=== PATIENT | male | born 1990 | race Two or more races ===

== ENCOUNTER 2017-12-11 09:58 | Emergency (ER) | payer MEDICAID ==
[~2017-12-11] VITALS: Ht 170.2 cm; Wt 72.7 kg
[~2017-12-11 09:58] MED LIST: HYDR-3965 PO; METR500T PO; METR500T4 PO; PANT-47 PO; PRED20TA PO
[2017-12-11 10:34] LABS: BASOPHILS # (AUTO) 0.1 X10'3 (0-0.2); BASOPHILS % (AUTO) 0.9 % (0-1); EOSINOPHILS # (AUTO) 0.3 X10'3 (0-0.9); EOSINOPHILS % (AUTO) 3.3 % (0-6); HEMATOCRIT 38.4 % (42.0-52.0); HEMOGLOBIN 12.3 g/dl (14.0-17.9); LYMPHOCYTES # (AUTO) 1.5 X10'3 (1.1-4.8); LYMPHOCYTES % (AUTO) 15.7 % (21-51); MEAN CORPUSCULAR HEMOGLOBIN 23.6 PG (27.0-31.0); MEAN CORPUSCULAR VOLUME 73.8 FL (78-98); MEAN PLATELET VOLUME 7.2 FL (7.4-10.4); MONOCYTES # (AUTO) 1.2 X10'3 (0-0.9); MONOCYTES % (AUTO) 12.5 % (2-12); NEUTROPHILS # (AUTO) 6.3 X10'3 (1.8-7.7); NEUTROPHILS % (AUTO) 67.6 % (42-75); PLATELET COUNT 793 X10'3 (140-440); RED BLOOD COUNT 5.21 X10'6 (4.70-6.10); RED CELL DISTRIBUTION WIDTH 15.6 % (11.5-14.5); WHITE BLOOD COUNT 9.4 X10'3 (4.5-11.0)
[2017-12-11 10:47] LABS: ALANINE AMINOTRANSFERASE 30 U/L (12-78); ALBUMIN 4.1 G/DL (3.4-5.0); ALKALINE PHOSPHATASE 65 IU/L (46-116); ANION GAP 6 (8-16); ASPARTATE AMINO TRANSFERASE 24 U/L (10-37); BILIRUBIN,TOTAL 0.6 MG/DL (0.1-1.0); BLOOD UREA NITROGEN 9 MG/DL (7-18); BUN/CREATININE RATIO 8.4 (5.4-32.0); CALCIUM 9.2 MG/DL (8.5-10.1); CHLORIDE 99 MMOL/L (99-107); CREATININE 1.07 MG/DL (0.60-1.10); GLUCOSE 106 MG/DL (70-104); POTASSIUM 3.6 MMOL/L (3.5-5.1); SODIUM 135 MMOL/L (135-145); TOTAL CARBON DIOXIDE 29.8 MMOL/L (24-32); TOTAL PROTEIN 8.2 G/DL (6.4-8.2); eGFR 82 ML/MIN
[2017-12-11 10:47] LABS: CLARITY,URINE CLEAR (Clear); COLOR,URINE YELLOW (Yellow); GLUCOSE, URINE NEGATIVE (Neg); KETONES,URINE TRACE mg/dl (Neg); LEUKOCYTE ESTERASE ,URINE NEGATIVE (Neg); NITRITES, URINE NEGATIVE (Neg); OCCULT BLOOD,URINE TRACE-INTACT (Neg); PROTEIN,URINE NEGATIVE (Neg); UROBILINOGEN,URINE 0.2 E.U/dL (0.2-1.0)
[2017-12-11 10:48] LABS: PROTHROMBIN TIME 10.4 SECONDS (9.0-12.0)
[2017-12-11] MEDS ORDERED: ondansetron/PF 4mg/2ml inj IV ONE (10:55)
[2017-12-11] MEDS ORDERED: methylPREDNISolone sod succ 125mg/2ml vial IV ONE (10:55)
[2017-12-11] MEDS ORDERED: normal saline 1000ML IV soln IVB ONE (10:55)
[2017-12-11] MEDS ORDERED: morphine 4 MG/ML inj SYRINge IV PRN (10:55)
[2017-12-11 11:03] LABS: UA COLLECTION TYPE VOIDED
[2017-12-11 11:15] LABS: WBC,URINE NONE SEEN /HPF (0-4)
[2017-12-11 11:16] LABS: BACTERIA,URINE 1+ /HPF (Neg); MUCUS STRANDS NONE SEEN /LPF (Neg); RBC,URINE 0-2 /HPF (0-2); SQUAMOUS EPITHELIAL CELL,UR FEW /LPF (FEW)
[2017-12-11] MEDS ORDERED: CIPR-230 PO (13:00)
[2017-12-11] MEDS ORDERED: METR500T4 PO (13:00)
[2017-12-11] MEDS ORDERED: PRED20TA PO (13:00)
[2017-12-11] MEDS ORDERED: ONDA4TAB6 PO (13:01)
[2017-12-11 13:21] VITALS: BP 119/67
== END 2017-12-11 13:31 | disposition home or self-care (01) ==
LOC: ER 09:58
DX: K51.90 Ulcerative colitis, unspecified, without complications (principal); J45.909 Unspecified asthma, uncomplicated; Z79.2 Long term (current) use of antibiotics; Z79.899 Other long term (current) drug therapy
CPT/HCPCS: 36415; 80053; 81001; 85025; 85610; 96374; 96375; 99284; J2270; J2405; J2930; J7030

== ENCOUNTER 2018-11-28 10:32 | Emergency (ER) | payer MEDICAID ==
[~2018-11-28] VITALS: Ht 170.2 cm; Wt 82.0 kg
[~2018-11-28 10:32] MED LIST changes: +METR-159 PO; -METR500T4 PO; +ONDA4TAB6 PO
[2018-11-28] MEDS ORDERED: BUPIVAcaine/PF 7.5mg/ml (0.75%) 10ml vial IJ ONE (11:15)
[2018-11-28] MEDS ORDERED: AMOX500C2 PO (11:23)
[2018-11-28 11:44] VITALS: BP 126/66
== END 2018-11-28 11:46 | disposition home or self-care (01) ==
LOC: ER 10:33
DX: K04.7 Periapical abscess without sinus (principal); J45.909 Unspecified asthma, uncomplicated; Z79.899 Other long term (current) drug therapy
CPT/HCPCS: 41800; 99283; J3490

== ENCOUNTER 2019-03-03 09:23 | Emergency (ER) | payer MEDICAID ==
[~2019-03-03] VITALS: Ht 172.7 cm; Wt 80.0 kg
[2019-03-03] MEDS ORDERED: PRED20TA PO (10:16)
[2019-03-03] MEDS ORDERED: predniSONE 20 mg tablet PO ONE (10:20)
[2019-03-03 10:29] VITALS: BP 113/79
== END 2019-03-03 10:34 | disposition home or self-care (01) ==
LOC: ER 09:24
DX: K50.90 Crohn's disease, unspecified, without complications (principal); J45.909 Unspecified asthma, uncomplicated; Z79.899 Other long term (current) drug therapy
CPT/HCPCS: 99283; J7512

== ENCOUNTER 2019-05-13 11:41 | Inpatient (IN) | payer MEDICAID ==
[~2019-05-13] VITALS: Ht 170.2 cm; Wt 78.6 kg
[2019-05-13] MEDS ORDERED: CefTRIAXone 2gm/D5W 50ml 50 ML IV ONE (12:35)
[2019-05-13] MEDS ORDERED: normal saline 1000ML IV soln IVB ONE ×2 (12:35→14:00)
[2019-05-13 12:45] LABS: BASOPHILS # (AUTO) 0.1 X10'3 (0-0.2); EOSINOPHILS # (AUTO) 0.1 X10'3 (0-0.9)
[2019-05-13 12:47] LABS: BASOPHILS % (AUTO) 0.4 % (0-1); EOSINOPHILS % (AUTO) 0.3 % (0-6); HEMOGLOBIN 8.9 g/dl (14.0-17.9); LYMPHOCYTES # (AUTO) 2.1 X10'3 (1.1-4.8); LYMPHOCYTES % (AUTO) 6.5 % (21-51); MEAN CORPUSCULAR HEMOGLOBIN 21.8 PG (27.0-31.0); MEAN CORPUSCULAR HGB CONC 30.8 g/dL (33.0-36.5); MEAN CORPUSCULAR VOLUME 70.6 FL (78-98); MEAN PLATELET VOLUME 7.3 FL (7.4-10.4); MONOCYTES % (AUTO) 6.2 % (2-12); NEUTROPHILS # (AUTO) 28.4 X10'3 (1.8-7.7); NEUTROPHILS % (AUTO) 86.6 % (42-75); PLATELET COUNT 658 X10'3 (140-440); RED BLOOD COUNT 4.11 X10'6 (4.70-6.10); RED CELL DISTRIBUTION WIDTH 15.6 % (11.5-14.5)
[2019-05-13 12:51] LABS: WHITE BLOOD COUNT 32.7 X10'3 (4.5-11.0)
[2019-05-13 13:02] LABS: ALANINE AMINOTRANSFERASE 28 U/L (12-78); ALBUMIN 3.9 G/DL (3.4-5.0); ALKALINE PHOSPHATASE 69 IU/L (46-116); ANION GAP 9 (8-16); ASPARTATE AMINO TRANSFERASE 23 U/L (10-37); BLOOD UREA NITROGEN 9 MG/DL (7-18); BUN/CREATININE RATIO 10.1 (5.4-32.0); CALCIUM 8.9 MG/DL (8.5-10.1); CHLORIDE 100 MMOL/L (99-107); CREATININE 0.89 MG/DL (0.60-1.10); GLUCOSE 95 MG/DL (70-104); POTASSIUM 4.1 MMOL/L (3.5-5.1); SODIUM 136 MMOL/L (135-145); TOTAL CARBON DIOXIDE 27.2 MMOL/L (24-32); TOTAL PROTEIN 7.7 G/DL (6.4-8.2); eGFR > 90 ML/MIN
[2019-05-13 13:10] LABS: LARGE PLATELETS FEW; MICROCYTOSIS 1+; PLATELET ESTIMATE INCREASED; TOTAL CELLS COUNTED 100
[2019-05-13] MEDS ORDERED: acetaminophen 325mg tablet PO ONE (14:00)
[2019-05-13] MEDS ORDERED: CEPH500C5 PO (14:01)
[2019-05-13] MEDS ORDERED: ondansetron 4mg rapidly disintigrating tab PO ONE (14:25)
[2019-05-13] MEDS ORDERED: morphine 4 MG/ML inj SYRINge IV ONE (14:25)
[2019-05-13] MEDS ORDERED: MESA500C PO (14:37)
[2019-05-13] MEDS ORDERED: SULF500T9 PO (14:37)
[2019-05-13] MEDS ORDERED: iohexol 300mg/ml 100ml inj. ONE (17:10)
[2019-05-13] MEDS ORDERED: ondansetron/PF 4mg/2ml inj IV PRN (17:30)
[2019-05-13] MEDS ORDERED: acetaminophen 325mg tablet PO PRN (17:30)
[2019-05-13] MEDS ORDERED: magnesium hydroxide 30ml (MOM) UD suspension PO PRN (17:30)
[2019-05-13] MEDS ORDERED: mag hydrox/Alum hydrox/simeth 30ml oral suspension PO PRN (17:30)
[2019-05-13] MEDS ORDERED: morphine 2 MG/ML inj. syringe IV PRN ×2 (17:30)
[2019-05-13] MEDS: normal saline 1000ml 1,000 ML IV SCH (18:25)
[2019-05-13] MEDS: VANCOMYCIN 1gm/H2O 200ml PB 200 ML IV SCH (18:51)
--- NOTE | 2019-05-13 18:58 | NUR ---
Wound pictures taken of left leg/knee/toes.
[2019-05-13] MEDS: clindamycin 600mg/D5W 50ml 50 ML IV SCH (20:25)
[2019-05-13 21:00] VITALS: BP 124/63
--- NOTE | 2019-05-13 21:00 | NUR ---
RECEIVED PATIENT TO ROOM 4017 FROM [facility]. ELVIRA GRAVES [facility]. PATIENT STABLE EXCEPT PAIN WHICH I MEDICATED WITH NORCO. FATHER AT BEDSIDE.
[2019-05-13] MEDS: HYDROcodone/acetaminophen 5mg/325mg tablet PO PRN (21:58)
[2019-05-14] MEDS: VANCOMYCIN 1gm/H2O 200ml PB 200 ML IV SCH (00:36)
[2019-05-14] MEDS: clindamycin 600mg/D5W 50ml 50 ML IV SCH ×2 (02:20→08:24)
[2019-05-14] MEDS: normal saline 1000ml 1,000 ML IV SCH ×3 (05:24→23:35)
[2019-05-14] MEDS: HYDROcodone/acetaminophen 5mg/325mg tablet PO PRN ×2 (05:25→12:38)
[2019-05-14 06:16] LABS: BASOPHILS # (AUTO) 0.1 X10'3 (0-0.2); BASOPHILS % (AUTO) 0.3 % (0-1); EOSINOPHILS # (AUTO) 0.2 X10'3 (0-0.9); EOSINOPHILS % (AUTO) 0.6 % (0-6); LYMPHOCYTES # (AUTO) 2.3 X10'3 (1.1-4.8); NEUTROPHILS % (AUTO) 84.7 % (42-75)
[2019-05-14 06:19] LABS: HEMATOCRIT 25.2 % (42.0-52.0); HEMOGLOBIN 7.9 g/dl (14.0-17.9); LYMPHOCYTES % (AUTO) 8.1 % (21-51); MEAN CORPUSCULAR HEMOGLOBIN 22.1 PG (27.0-31.0); MEAN CORPUSCULAR HGB CONC 31.2 g/dL (33.0-36.5); MEAN CORPUSCULAR VOLUME 70.7 FL (78-98); MEAN PLATELET VOLUME 7.7 FL (7.4-10.4); MONOCYTES # (AUTO) 1.8 X10'3 (0-0.9); MONOCYTES % (AUTO) 6.3 % (2-12); NEUTROPHILS # (AUTO) 24.1 X10'3 (1.8-7.7); PLATELET COUNT 637 X10'3 (140-440); RED BLOOD COUNT 3.56 X10'6 (4.70-6.10); RED CELL DISTRIBUTION WIDTH 15.5 % (11.5-14.5)
[2019-05-14 06:24] LABS: ALBUMIN 3.4 G/DL (3.4-5.0); ANION GAP 12 (8-16); BLOOD UREA NITROGEN 6 MG/DL (7-18); BUN/CREATININE RATIO 7.8 (5.4-32.0); CALCIUM 8.3 MG/DL (8.5-10.1); CHLORIDE 100 MMOL/L (99-107); CREATININE 0.77 MG/DL (0.60-1.10); GLUCOSE 78 MG/DL (70-104); POTASSIUM 3.7 MMOL/L (3.5-5.1); SODIUM 135 MMOL/L (135-145); TOTAL CARBON DIOXIDE 23.4 MMOL/L (24-32); eGFR > 90 ML/MIN
[2019-05-14 06:29] LABS: WHITE BLOOD COUNT 28.5 X10'3 (4.5-11.0)
[2019-05-14 07:05] LABS: PLATELET ESTIMATE INCREASED; TOTAL CELLS COUNTED 100
[2019-05-14 07:06] LABS: HYPOCHROMASIA 1+; MICROCYTOSIS 1+
[2019-05-14 07:56] VITALS: BP 115/65
[2019-05-14] MEDS ORDERED: VANCOmycin 1250MG/NS 250ml Bag 250 ML IV SCH (08:00)
[2019-05-14] MEDS ORDERED: CefTRIAXone 2gm/D5W 50ml 50 ML IV SCH (08:00)
[2019-05-14] MEDS: enoxaparin 40mg/0.4ml syringe SUBCUT SCH (08:25)
[2019-05-14 10:00] VITALS: BP 115/64
--- NOTE | 2019-05-14 11:04 | NUR ---
Nutrition consult "poor PO r/t Crohn's, BM urgency, wounds": Pt admit w/ L leg cellulitis and hx Crohn's currently having mx BM's shortly after meals. Pt seen by MIKE and reports Crohn's hx since 2011, poor PO lately mainly wanting soups to aid in GI meal tolerance since has BM's roughly 5min after PO. RD provided pt w/ written/verbal high protein and low-residue diet ed w/ RD contact information provided. Pt recognizes importance of proteins but declines additional at this time; is agreeable to vegetable soup for dinner. Dietary notified. MIKE d/w MD who agrees to low-residue diet for enhanced PO tolerance. LBM 05/14 mx. Will continue to monitor for PO diet tolerance and additional protein needs. Rec: 1. advance diet per MD to low-residue 2. encourage PO; soups w/ dinner per pt request 3. monitor for ONS needs pending PO hx 4. weekly wts Addendum: 05/14/19 at [address] Amended: Links added.
[2019-05-14 15:33] LABS: HIV ANTIBODY 1&2 RAPID NON-REACTIVE (Neg)
[2019-05-14] MEDS: HYDROcodone/acetaminophen 10/325mg tab PO PRN ×2 (17:15→21:43)
[2019-05-14] MEDS: cefazolin/dext.iso 2gm/100ml 100 ML IV SCH ×2 (17:16→23:36)
[2019-05-14] MEDS: CLINDAMYCIN/D5W 900mg/50ml 50 ML IV SCH ×2 (17:16→23:35)
[2019-05-14 18:00] VITALS: BP 119/66
--- NOTE | 2019-05-14 18:00 | NUR ---
Patient in room [facility]TH[facility] 4017. I have received report from ELY Duron and had the opportunity to ask questions and assume patient care.
--- NOTE | 2019-05-14 18:48 | NUR ---
Problems reprioritized. Patient report given, questions answered & plan of care reviewed with Lizzy GRAVES.
[2019-05-14 22:00] VITALS: BP 115/59
[2019-05-15] MEDS: HYDROcodone/acetaminophen 10/325mg tab PO PRN ×4 (04:30→23:56)
--- NOTE | 2019-05-15 06:38 | NUR ---
Problems reprioritized. Patient report given, questions answered & plan of care reviewed with ELY Moody.
--- NOTE | 2019-05-15 06:47 | NUR ---
Patient in room [facility]TH[facility] 4017. I have received report from Lizzy GRAVES and had the opportunity to ask questions and assume patient care.
[2019-05-15] MEDS ORDERED: VANCOMYCIN LEVEL IV ONE (07:30)
[2019-05-15 07:55] VITALS: BP 113/68
[2019-05-15 08:47] LABS: BASOPHILS # (AUTO) 0.1 X10'3 (0-0.2); BASOPHILS % (AUTO) 0.4 % (0-1); EOSINOPHILS # (AUTO) 0.4 X10'3 (0-0.9); MONOCYTES # (AUTO) 1.4 X10'3 (0-0.9); RED CELL DISTRIBUTION WIDTH 15.3 % (11.5-14.5)
[2019-05-15 08:48] LABS: EOSINOPHILS % (AUTO) 1.4 % (0-6); HEMATOCRIT 25.5 % (42.0-52.0); HEMOGLOBIN 7.8 g/dl (14.0-17.9); LYMPHOCYTES # (AUTO) 2.6 X10'3 (1.1-4.8); LYMPHOCYTES % (AUTO) 10.4 % (21-51); MEAN CORPUSCULAR HEMOGLOBIN 21.5 PG (27.0-31.0); MEAN CORPUSCULAR HGB CONC 30.8 g/dL (33.0-36.5); MEAN PLATELET VOLUME 7.8 FL (7.4-10.4); MONOCYTES % (AUTO) 5.6 % (2-12); NEUTROPHILS # (AUTO) 20.9 X10'3 (1.8-7.7); NEUTROPHILS % (AUTO) 82.2 % (42-75); PLATELET COUNT 664 X10'3 (140-440); RED BLOOD COUNT 3.64 X10'6 (4.70-6.10)
[2019-05-15 09:00] LABS: ANION GAP 10 (8-16); BLOOD UREA NITROGEN 6 MG/DL (7-18); BUN/CREATININE RATIO 7.2 (5.4-32.0); CALCIUM 8.2 MG/DL (8.5-10.1); CHLORIDE 102 MMOL/L (99-107); CREATININE 0.83 MG/DL (0.60-1.10); GLUCOSE 89 MG/DL (70-104); SODIUM 139 MMOL/L (135-145); TOTAL CARBON DIOXIDE 26.7 MMOL/L (24-32); VANCOMYCIN,TROUGH 0.6 UG/ML (6.0-14.0); eGFR > 90 ML/MIN
[2019-05-15 09:03] LABS: WHITE BLOOD COUNT 25.4 X10'3 (4.5-11.0)
[2019-05-15] MEDS: normal saline 1000ml 1,000 ML IV SCH ×2 (09:29→16:11)
[2019-05-15] MEDS: enoxaparin 40mg/0.4ml syringe SUBCUT SCH (09:42)
[2019-05-15] MEDS: lactobacillus rhamnosus 10,000 MMU CELLS/CAPSULE PO SCH (09:43)
[2019-05-15] MEDS: CLINDAMYCIN/D5W 900mg/50ml 50 ML IV SCH ×2 (09:43→16:06)
[2019-05-15] MEDS: cefazolin/dext.iso 2gm/100ml 100 ML IV SCH ×3 (09:43→23:56)
[2019-05-15 09:48] LABS: HYPOCHROMASIA 1+; MICROCYTOSIS 1+; PLATELET ESTIMATE INCREASED; TOTAL CELLS COUNTED 100
[2019-05-15 09:49] LABS: SCHISTOCYTES FEW
[2019-05-15 17:00] VITALS: BP 116/65
--- NOTE | 2019-05-15 18:11 | NUR ---
Problems reprioritized. Patient report given, questions answered & plan of care reviewed with Lizzy GRAVES. Addendum: 05/15/19 at 1819 by Fransisco Silva RN Report given to Glen GRAVES not Lizzy GRAVES
--- NOTE | 2019-05-15 18:45 | NUR ---
Patient in room [facility]TH[facility] 4017. I have received report from Fransisco GRAVES and had the opportunity to ask questions and assume patient care.
[2019-05-15 22:00] VITALS: BP 129/70
[2019-05-16] MEDS: CLINDAMYCIN/D5W 900mg/50ml 50 ML IV SCH ×3 (01:04→16:08)
[2019-05-16] MEDS: normal saline 1000ml 1,000 ML IV SCH ×3 (05:39→21:29)
[2019-05-16 06:00] VITALS: BP 112/62
[2019-05-16 06:09] LABS: BASOPHILS # (AUTO) 0.1 X10'3 (0-0.2); BASOPHILS % (AUTO) 0.5 % (0-1); EOSINOPHILS # (AUTO) 0.4 X10'3 (0-0.9); EOSINOPHILS % (AUTO) 2.2 % (0-6); LYMPHOCYTES # (AUTO) 2.7 X10'3 (1.1-4.8); LYMPHOCYTES % (AUTO) 14.5 % (21-51); MEAN CORPUSCULAR HEMOGLOBIN 21.6 PG (27.0-31.0); MEAN CORPUSCULAR HGB CONC 31.3 g/dL (33.0-36.5); MEAN CORPUSCULAR VOLUME 69.1 FL (78-98); MEAN PLATELET VOLUME 7.6 FL (7.4-10.4); MONOCYTES # (AUTO) 1.1 X10'3 (0-0.9); MONOCYTES % (AUTO) 6.2 % (2-12); NEUTROPHILS # (AUTO) 14.2 X10'3 (1.8-7.7); NEUTROPHILS % (AUTO) 76.6 % (42-75); PLATELET COUNT 637 X10'3 (140-440); RED BLOOD COUNT 3.17 X10'6 (4.70-6.10); RED CELL DISTRIBUTION WIDTH 15.3 % (11.5-14.5); WHITE BLOOD COUNT 18.5 X10'3 (4.5-11.0)
[2019-05-16 06:13] LABS: HEMOGLOBIN 6.8 g/dl (14.0-17.9)
[2019-05-16 06:14] LABS: HEMATOCRIT 21.9 % (42.0-52.0)
[2019-05-16 06:23] LABS: ALBUMIN 2.6 G/DL (3.4-5.0); ANION GAP 8 (8-16); BLOOD UREA NITROGEN 4 MG/DL (7-18); BUN/CREATININE RATIO 6.2 (5.4-32.0); CALCIUM 8.4 MG/DL (8.5-10.1); CHLORIDE 107 MMOL/L (99-107); CREATININE 0.65 MG/DL (0.60-1.10); GLUCOSE 82 MG/DL (70-104); POTASSIUM 3.4 MMOL/L (3.5-5.1); SODIUM 144 MMOL/L (135-145); TOTAL CARBON DIOXIDE 29.1 MMOL/L (24-32); eGFR > 90 ML/MIN
--- NOTE | 2019-05-16 06:28 | NUR ---
Dr Bruno Room 4017 Xochitl Quinones. Critcal lab Hgb 6.8 Hematocrit 21.9 down from 7.8 HGB and 25.5 Hematocit. DX cellulitis, History of Chrohns. No bloody BM's over night. Ext [phone] [place] Jacob Moody will be the next nurse.
--- NOTE | 2019-05-16 06:34 | NUR ---
Problems reprioritized. Patient report given, questions answered & plan of care reviewed with Fransisco GRAVES.
[2019-05-16] MEDS: HYDROcodone/acetaminophen 10/325mg tab PO PRN ×3 (06:47→19:03)
[2019-05-16 06:56] LABS: ANISOCYTOSIS 1+; PLATELET ESTIMATE INCREASED
[2019-05-16 06:57] LABS: MICROCYTOSIS 2+
[2019-05-16 06:58] LABS: POLYCHROMASIA FEW
[2019-05-16 06:59] LABS: HYPOCHROMASIA 1+; POIKILOCYTOSIS 1+; TARGET CELLS FEW
[2019-05-16 08:53] LABS: HEMATOCRIT 25.3 % (42.0-52.0); RED BLOOD COUNT 3.65 X10'6 (4.70-6.10)
[2019-05-16] MEDS: lactobacillus rhamnosus 10,000 MMU CELLS/CAPSULE PO SCH (08:53)
[2019-05-16] MEDS: enoxaparin 40mg/0.4ml syringe SUBCUT SCH (08:53)
[2019-05-16 08:55] LABS: MEAN CORPUSCULAR HEMOGLOBIN 21.9 PG (27.0-31.0); MEAN CORPUSCULAR HGB CONC 31.5 g/dL (33.0-36.5); MEAN CORPUSCULAR VOLUME 69.4 FL (78-98); MEAN PLATELET VOLUME 6.9 FL (7.4-10.4); PLATELET COUNT 668 X10'3 (140-440); RED CELL DISTRIBUTION WIDTH 15.6 % (11.5-14.5); WHITE BLOOD COUNT 18.1 X10'3 (4.5-11.0)
[2019-05-16] MEDS: cefazolin/dext.iso 2gm/100ml 100 ML IV SCH ×2 (08:58→17:04)
--- NOTE | 2019-05-16 15:35 | NUR ---
Problems reprioritized. Patient report given, questions answered & plan of care reviewed with Genie GRAVES.
[2019-05-16 18:00] VITALS: BP 119/76
--- NOTE | 2019-05-16 18:25 | NUR ---
Problems reprioritized. Patient report given, questions answered & plan of care reviewed with Emeli GRAVES.
--- NOTE | 2019-05-16 18:29 | NUR ---
Patient in room [facility]TH[facility] 4017. I have received report from Genie GRAVES and had the opportunity to ask questions and assume patient care.
[2019-05-16] MEDS: sulfaSALAZINE 500 MG tablet PO SCH (20:12)
[2019-05-16 22:00] VITALS: BP 114/70
[2019-05-17] MEDS: cefazolin/dext.iso 2gm/100ml 100 ML IV SCH ×4 (00:05→23:43)
[2019-05-17] MEDS: CLINDAMYCIN/D5W 900mg/50ml 50 ML IV SCH ×4 (00:45→23:04)
[2019-05-17] MEDS: HYDROcodone/acetaminophen 10/325mg tab PO PRN ×5 (00:52→23:55)
[2019-05-17 06:09] VITALS: BP 105/68
[2019-05-17 06:34] LABS: HEMOGLOBIN 7.1 g/dl (14.0-17.9); MONOCYTES # (AUTO) 0.9 X10'3 (0-0.9); RED CELL DISTRIBUTION WIDTH 15.5 % (11.5-14.5)
--- NOTE | 2019-05-17 06:34 | NUR ---
Problems reprioritized. Patient report given, questions answered & plan of care reviewed with Reyna GRAVES.
[2019-05-17 06:36] LABS: BASOPHILS # (AUTO) 0.1 X10'3 (0-0.2); BASOPHILS % (AUTO) 0.5 % (0-1); EOSINOPHILS # (AUTO) 1.4 X10'3 (0-0.9); EOSINOPHILS % (AUTO) 8.6 % (0-6); MEAN CORPUSCULAR HEMOGLOBIN 22.5 PG (27.0-31.0); MEAN CORPUSCULAR HGB CONC 32.5 g/dL (33.0-36.5); MEAN CORPUSCULAR VOLUME 69.1 FL (78-98); MEAN PLATELET VOLUME 7.3 FL (7.4-10.4); MONOCYTES % (AUTO) 5.7 % (2-12); NEUTROPHILS # (AUTO) 10.5 X10'3 (1.8-7.7); NEUTROPHILS % (AUTO) 66.2 % (42-75); PLATELET COUNT 711 X10'3 (140-440); RED BLOOD COUNT 3.17 X10'6 (4.70-6.10); WHITE BLOOD COUNT 15.9 X10'3 (4.5-11.0)
[2019-05-17 06:38] LABS: HEMATOCRIT 21.9 % (42.0-52.0)
--- NOTE | 2019-05-17 06:40 | NUR ---
Patient in room [facility]TH[facility] 4017. I have received report from Emeli GRAVES and had the opportunity to ask questions and assume patient care.
[2019-05-17 06:44] LABS: ALBUMIN 2.8 G/DL (3.4-5.0); ANION GAP 9 (8-16); BLOOD UREA NITROGEN 3 MG/DL (7-18); BUN/CREATININE RATIO 4.1 (5.4-32.0); CALCIUM 8.3 MG/DL (8.5-10.1); CHLORIDE 104 MMOL/L (99-107); CREATININE 0.74 MG/DL (0.60-1.10); GLUCOSE 80 MG/DL (70-104); POTASSIUM 3.7 MMOL/L (3.5-5.1); SODIUM 141 MMOL/L (135-145); TOTAL CARBON DIOXIDE 27.6 MMOL/L (24-32); eGFR > 90 ML/MIN
[2019-05-17] MEDS: normal saline 1000ml 1,000 ML IV SCH ×2 (07:14→21:36)
[2019-05-17] MEDS: sulfaSALAZINE 500 MG tablet PO SCH ×3 (07:17→20:34)
[2019-05-17] MEDS: lactobacillus rhamnosus 10,000 MMU CELLS/CAPSULE PO SCH (07:17)
[2019-05-17] MEDS: enoxaparin 40mg/0.4ml syringe SUBCUT SCH (07:18)
[2019-05-17] MEDS: MESALAMINE 500 MG PO SCH (08:00)
[2019-05-17 09:11] LABS: ANISOCYTOSIS 1+; HYPOCHROMASIA 1+; MICROCYTOSIS 2+; PLATELET ESTIMATE INCREASED; POLYCHROMASIA FEW
--- NOTE | 2019-05-17 09:58 | NUR ---
WOUND INFECTION EDUCATION PROVIDED BY WOUND CARE 1. Patient instructed to call their primary doctor, or go the ED immediately if any of the following symptoms occur: * Increased pain in wound * Increase in drainage from the wound * Redness in the skin surrounding the wound * Warmth in the skin surrounding the wound * Bleeding from the wound * Temperature of 101 or greater 2. If any of these occur while in the hospital tell a nurse immediately. Addendum: 05/17/19 at 0959 by Petra Antonio RN Amended: Links added.
[2019-05-17 10:00] VITALS: BP 121/76
--- NOTE | 2019-05-17 11:39 | NUR ---
Reassessment: Pt continues on abx tx for cellulitis. Pt documented with some 50% PO intake however overall 100% PO intake on regular diet meeting nutrient needs. LBM 05/17 documented as diarrhea. D/w RN recommendation for diet change to low fiber/low residue given frequent bouts of diarrhea, to d/w MD. Will continue to follow and monitor need for additional nutrition intervention. Rec: 1. diet change to low-residue with MD approval 2. encourage PO; soups w/ dinner per pt request 3. monitor for ONS needs 4. weekly wts Addendum: 05/17/19 at [address] Amended: Links added.
[2019-05-17 17:00] VITALS: BP 114/64
--- NOTE | 2019-05-17 18:15 | NUR ---
Problems reprioritized. Patient report given, questions answered & plan of care reviewed with Palak RN.
--- NOTE | 2019-05-17 18:20 | NUR ---
Received report from Reyna GRAVES. assumed care of patient.
[2019-05-17 21:00] VITALS: BP 123/70
[2019-05-18 06:00] VITALS: BP 112/65
--- NOTE | 2019-05-18 06:33 | NUR ---
Gave report to Laney GRAVES.
[2019-05-18 06:42] LABS: ALBUMIN 2.8 G/DL (3.4-5.0); ANION GAP 9 (8-16); BLOOD UREA NITROGEN 4 MG/DL (7-18); BUN/CREATININE RATIO 5.3 (5.4-32.0); CALCIUM 8.5 MG/DL (8.5-10.1); CHLORIDE 108 MMOL/L (99-107); CREATININE 0.75 MG/DL (0.60-1.10); GLUCOSE 86 MG/DL (70-104); POTASSIUM 3.9 MMOL/L (3.5-5.1); SODIUM 143 MMOL/L (135-145); TOTAL CARBON DIOXIDE 26.5 MMOL/L (24-32); eGFR > 90 ML/MIN
[2019-05-18 06:49] LABS: HEMOGLOBIN 7.3 g/dl (14.0-17.9)
[2019-05-18 06:50] LABS: HEMATOCRIT 23.2 % (42.0-52.0); MEAN CORPUSCULAR HEMOGLOBIN 21.8 PG (27.0-31.0); MEAN CORPUSCULAR HGB CONC 31.6 g/dL (33.0-36.5); MEAN CORPUSCULAR VOLUME 69.2 FL (78-98); MEAN PLATELET VOLUME 7.6 FL (7.4-10.4); PLATELET COUNT 810 X10'3 (140-440); RED BLOOD COUNT 3.35 X10'6 (4.70-6.10); RED CELL DISTRIBUTION WIDTH 15.5 % (11.5-14.5)
[2019-05-18] MEDS: HYDROcodone/acetaminophen 10/325mg tab PO PRN ×2 (06:52→13:32)
[2019-05-18 07:15] LABS: ANISOCYTOSIS 1+; MICROCYTOSIS 2+; NUCLEATED RED BLOOD CELLS 1 /100WBC (0-0); PLATELET ESTIMATE INCREASED; TOTAL CELLS COUNTED 100
[2019-05-18 07:16] LABS: HYPOCHROMASIA 1+; POLYCHROMASIA FEW
[2019-05-18] MEDS: MESALAMINE 500 MG PO SCH (08:00)
[2019-05-18] MEDS: normal saline 1000ml 1,000 ML IV SCH (08:51)
[2019-05-18] MEDS: cefazolin/dext.iso 2gm/100ml 100 ML IV SCH (08:52)
[2019-05-18] MEDS: sulfaSALAZINE 500 MG tablet PO SCH ×2 (08:52→13:32)
[2019-05-18] MEDS: lactobacillus rhamnosus 10,000 MMU CELLS/CAPSULE PO SCH (08:52)
[2019-05-18] MEDS: enoxaparin 40mg/0.4ml syringe SUBCUT SCH (08:53)
[2019-05-18 10:00] VITALS: BP 123/85
[2019-05-18] MEDS: CLINDAMYCIN/D5W 900mg/50ml 50 ML IV SCH (10:00)
--- NOTE | 2019-05-18 11:12 | NUR ---
requested that pt have someone bring his home meds in (mesalamine)
[2019-05-18] MEDS ORDERED: FERR134T2 PO (12:54)
[2019-05-18] MEDS ORDERED: CEPH500C5 PO (12:54)
--- NOTE | 2019-05-18 14:00 | NUR ---
PAGER ID: [phone] MESSAGE: Laney [phone] re rebekah jackman in [phone]- Can we send him home with a small supply of [place] 10 to get him through to a follow up with primary care? He is taking it q6.
[2019-05-18] MEDS ORDERED: HYDR-4353 PO (14:02)
--- NOTE | 2019-05-18 15:51 | NUR ---
rx for norco and supplies for dressing changes were given to pt
== END 2019-05-18 15:45 | disposition home or self-care (01) | DRG 720 ==
LOC: ER 11:41 → ED HOLD 17:44 → ORTHO 4S 21:00
PROVIDERS: ADMIT Family Medicine; ATTEND Family Medicine
PROC: B42G1ZZ Computerized Tomography (CT Scan) of Left Lower Extremity Arteries using Low Osmolar Contrast (ICD-10-PCS; principal; 2019-05-13)
DX: A41.9 Sepsis, unspecified organism (principal); D72.1 Eosinophilia; K50.90 Crohn's disease, unspecified, without complications; L03.116 Cellulitis of left lower limb; L03.114 Cellulitis of left upper limb; K21.9 Gastro-esophageal reflux disease without esophagitis; J45.909 Unspecified asthma, uncomplicated; E87.6 Hypokalemia; D63.8 Anemia in other chronic diseases classified elsewhere; Z79.899 Other long term (current) drug therapy
CPT/HCPCS: 36415; 73701; 80048; 80053; 80202; 83036; 83605; 84145; 85025; 85027; 86703; 87040; 87070; 87075; 87077; 87081; 87102; 87186; 93971; 96365; 96375; 99285; G0378; J0696; J1650; J2270; J3370; J3490; J7030; Q9967

== ENCOUNTER 2019-12-30 20:03 | Emergency (ER) | payer MEDICAID ==
[~2019-12-30] VITALS: Ht 170.2 cm; Wt 74.1 kg
[~2019-12-30 20:03] MED LIST changes: +CEPH500C5 PO; +FERR134T2 PO; -HYDR-3965 PO; +MESA500C PO; -METR-159 PO; -METR500T PO; -ONDA4TAB6 PO; -PANT-47 PO; -PRED20TA PO; +SULF500T9 PO
[2019-12-30 20:11] VITALS: BP 144/84
--- NOTE | 2019-12-30 20:28 | NUR ---
provider at bedside
[2019-12-30 21:01] LABS: BASOPHILS # (AUTO) 0.1 X10'3 (0-0.2); EOSINOPHILS # (AUTO) 0.6 X10'3 (0-0.9); HEMOGLOBIN 10.4 g/dl (14.0-17.9); MEAN PLATELET VOLUME 7.4 FL (7.4-10.4); MONOCYTES # (AUTO) 0.5 X10'3 (0-0.9)
[2019-12-30 21:03] LABS: HEMATOCRIT 32.9 % (42.0-52.0); MEAN CORPUSCULAR HGB CONC 31.6 g/dL (33.0-36.5); MEAN CORPUSCULAR VOLUME 72.8 FL (78-98); MONOCYTES % (AUTO) 5.7 % (2-12); NEUTROPHILS # (AUTO) 5.2 X10'3 (1.8-7.7); NEUTROPHILS % (AUTO) 62.3 % (42-75); PLATELET COUNT 750 X10'3 (140-440); RED BLOOD COUNT 4.52 X10'6 (4.70-6.10); RED CELL DISTRIBUTION WIDTH 17.7 % (11.5-14.5); WHITE BLOOD COUNT 8.3 X10'3 (4.5-11.0)
[2019-12-30 21:05] LABS: ALANINE AMINOTRANSFERASE 21 U/L (12-78); ALBUMIN 4.3 G/DL (3.4-5.0); ALBUMIN/GLOBULIN RATIO 1.3 (1.1-1.5); ALKALINE PHOSPHATASE 65 IU/L (46-116); ANION GAP 6 (8-16); ASPARTATE AMINO TRANSFERASE 21 U/L (10-37); BILIRUBIN,TOTAL 0.3 MG/DL (0.1-1.0); BLOOD UREA NITROGEN 7 MG/DL (7-18); BUN/CREATININE RATIO 7.1 (5.4-32.0); CALCIUM 8.9 MG/DL (8.5-10.1); CHLORIDE 105 MMOL/L (99-107); CREATININE 0.99 MG/DL (0.60-1.10); GLUCOSE 112 MG/DL (70-104); POTASSIUM 3.8 MMOL/L (3.5-5.1); SODIUM 140 MMOL/L (135-145); TOTAL CARBON DIOXIDE 28.9 MMOL/L (24-32); TOTAL PROTEIN 7.5 G/DL (6.4-8.2); eGFR 88 ML/MIN
[2019-12-30] MEDS ORDERED: PRED10TA23 PO (21:14)
== END 2019-12-30 21:46 | disposition home or self-care (01) ==
LOC: ER 20:04
DX: K51.90 Ulcerative colitis, unspecified, without complications (principal); J45.909 Unspecified asthma, uncomplicated; Z79.899 Other long term (current) drug therapy
CPT/HCPCS: 36415; 80053; 85025; 99283

== ENCOUNTER 2022-03-16 10:48 | Emergency (ER) | payer MEDICAID ==
[~2022-03-16] VITALS: Ht 170.2 cm; Wt 78.6 kg
[~2022-03-16 10:48] MED LIST changes: -CEPH500C5 PO
[2022-03-16 11:08] LABS: CLARITY,URINE CLEAR (Clear); COLOR,URINE YELLOW (Yellow); GLUCOSE, URINE NEGATIVE (Neg); KETONES,URINE NEGATIVE (Neg); LEUKOCYTE ESTERASE ,URINE NEGATIVE (Neg); NITRITES, URINE NEGATIVE (Neg); OCCULT BLOOD,URINE TRACE-LYSED (Neg); PH,URINE 8.5 (4.8-8.0); PROTEIN,URINE NEGATIVE (Neg); UROBILINOGEN,URINE 0.2 E.U/dL (0.2-1.0)
[2022-03-16 11:16] LABS: BASOPHILS # (AUTO) 0.1 X10'3 (0-0.2); BASOPHILS % (AUTO) 0.7 % (0-1); EOSINOPHILS # (AUTO) 0.8 X10'3 (0-0.9); MEAN CORPUSCULAR HGB CONC 33.1 g/dL (33.0-36.5); MEAN PLATELET VOLUME 7.2 FL (7.4-10.4); MONOCYTES % (AUTO) 3.2 % (2-12); NEUTROPHILS % (AUTO) 78.9 % (42-75); RED CELL DISTRIBUTION WIDTH 16.3 % (11.5-14.5)
[2022-03-16 11:18] LABS: EOSINOPHILS % (AUTO) 4.7 % (0-6); HEMATOCRIT 41.1 % (42.0-52.0); HEMOGLOBIN 13.6 g/dl (14.0-17.9); LYMPHOCYTES # (AUTO) 2.1 X10'3 (1.1-4.8); LYMPHOCYTES % (AUTO) 12.5 % (21-51); MEAN CORPUSCULAR HEMOGLOBIN 26.3 PG (27.0-31.0); MEAN CORPUSCULAR VOLUME 79.6 FL (78-98); MONOCYTES # (AUTO) 0.5 X10'3 (0-0.9); NEUTROPHILS # (AUTO) 13.5 X10'3 (1.8-7.7); PLATELET COUNT 811 X10'3 (140-440); RED BLOOD COUNT 5.17 X10'6 (4.70-6.10); WHITE BLOOD COUNT 17.1 X10'3 (4.5-11.0)
[2022-03-16 11:24] LABS: UA COLLECTION TYPE CLN CATCH MIDSTREAM
[2022-03-16 11:25] LABS: BACTERIA,URINE FEW /HPF (Neg); MUCUS STRANDS NONE SEEN /LPF (Neg); RBC,URINE 0-2 /HPF (0-2); SQUAMOUS EPITHELIAL CELL,UR FEW /LPF (FEW)
[2022-03-16 11:25] LABS: ALANINE AMINOTRANSFERASE 38 U/L (12-78); ALBUMIN 4.9 G/DL (3.4-5.0); ALBUMIN/GLOBULIN RATIO 1.2 (1.1-1.5); ALKALINE PHOSPHATASE 82 IU/L (46-116); ANION GAP 6 (8-16); ASPARTATE AMINO TRANSFERASE 26 U/L (10-37); BILIRUBIN,TOTAL 0.5 MG/DL (0.1-1.0); BLOOD UREA NITROGEN 9 MG/DL (7-18); CALCIUM 9.5 MG/DL (8.5-10.1); CHLORIDE 105 MMOL/L (99-107); CREATININE 0.82 MG/DL (0.60-1.10); GLUCOSE 111 MG/DL (70-104); LIPASE 63 U/L (73-393); POTASSIUM 4.6 MMOL/L (3.5-5.1); SODIUM 140 MMOL/L (135-145); TOTAL CARBON DIOXIDE 29.5 MMOL/L (24-32); TOTAL PROTEIN 8.9 G/DL (6.4-8.2); eGFR > 90 ML/MIN
[2022-03-16] MEDS ORDERED: ondansetron/PF 4mg/2ml inj IV ONE (11:40)
[2022-03-16] MEDS ORDERED: normal saline 1000ML IV soln IV ONE (11:40)
[2022-03-16] MEDS ORDERED: morphine 4 MG/ML inj SYRINge IV ONE (11:40)
[2022-03-16] MEDS ORDERED: iohexol 300mg/ml 100ml inj. ONE (12:15)
[2022-03-16 12:29] LABS: ANISOCYTOSIS 1+; LARGE PLATELETS FEW; MICROCYTOSIS 1+; PLATELET ESTIMATE INCREASED
[2022-03-16] MEDS ORDERED: AMOX-117 PO (13:10)
[2022-03-16] MEDS ORDERED: HYDR-3965 PO (13:14)
[2022-03-16 13:24] VITALS: BP 149/94
== END 2022-03-16 13:17 | disposition home or self-care (01) ==
LOC: ER 10:49
DX: N39.0 Urinary tract infection, site not specified (principal); R10.9 Unspecified abdominal pain; J45.909 Unspecified asthma, uncomplicated
CPT/HCPCS: 36415; 74177; 80053; 81001; 83605; 83690; 84145; 85008; 85025; 87040; 87088; 96374; 96375; 99285; J2270; J2405; J3490; J7030; Q9967

== ENCOUNTER 2022-10-22 16:34 | Emergency (ER) | payer MEDICAID ==
[~2022-10-22] VITALS: Ht 170.2 cm; Wt 89.1 kg
[2022-10-22 19:06] VITALS: BP 129/86
== END 2022-10-22 19:48 | disposition home or self-care (01) ==
LOC: ER 16:36
DX: F11.10 Opioid abuse, uncomplicated (principal); J45.909 Unspecified asthma, uncomplicated; Z79.899 Other long term (current) drug therapy
CPT/HCPCS: 99281